=== PATIENT | female | born 1955 | race Caucasian/White ===

== ENCOUNTER → 2016-02-16 | Outpatient (CLI) | payer MEDICARE, MEDICAID | LOC: RAD 10:40 | PROVIDERS: ATTEND Anesthesiology Pain Medicine | DX: M51.36 Other intervertebral disc degeneration, lumbar region (principal) | CPT/HCPCS: 72110 ==

== ENCOUNTER → 2016-02-18 | Outpatient (CLI) | payer MEDICARE, MEDICAID ==
--- NOTE | 2016-02-18 17:34 | WOMENS IMAGING REPORT ---
EXAM DESCRIPTION: BILAT SCREENING MAMMO W/CAD COMPLETED DATE/TIME: 02/18/2016 9:04 am REASON FOR STUDY: Z12.31, ROUTINE SCREENING MAMMO Z12.31 ENCNTR SCREEN MAMMOGRAM FOR MALIGNANT NEOP LASM OF DEAN COMPARISON: 05/02/2012 TECHNIQUE: Standard craniocaudal and mediolateral oblique views of each breast recorded using Granicusa l acquisition. LIMITATIONS: None. FINDINGS: Findings present which are benign by mammographic criteria. No suspicious masses, calcifi cations or architectural distortion. Read with the assistance of CAD. .[facility] - R2 Cenova Version 1.3 .[facility] - R2 Cenova Version 1.3 .[facility] - R2 Cenova Version 2.4 .[facility] - R2 Cenova Version 2.4 .[facility] - R2 Import And Export Clerk Version 9.2 Benign mammographic findings may include one or more of the following: Smooth masses, popcorn/rim/co arse calcifications, asymmetries, post-procedure changes, and lesions with long-standing stability. BREAST DENSITY: b. There are scattered areas of fibroglandular density. BIRAD: 2 BENIGN FINDING(S) RECOMMENDATION: ROUTINE SCREENING COMMENT: PATIENT NOTIFIED BY LETTER. The [employer] recommends an annual screening mammogram for women aged 40 years or over. Each patient will receive a reminder prior to the anniversary date of her mammogram. The [employer] ([employer]) has developed recommendations for screening MRI of the breast s in certain patient populations, to be used in conjunction with mammography. Breast MRI surveillanc e may be appropriate for women with more than 20% lifetime risk of developing breast cancer as deter mined by genetic testing, significant family history of the disease, or history of mantle radiation f or Hodgkins Disease. [employer] Practice Guidelines 2008. TECHNICAL DOCUMENTATION: FINDING NUMBER: (1) ASSESSMENT: (1) JOB ID: [id number] [employer]- All Rights Reserved
== END ==
LOC: WI 09:38
PROVIDERS: ATTEND Student in an Organized Health Care Education/Training Program
DX: Z12.31 Encounter for screening mammogram for malignant neoplasm of breast (principal)
CPT/HCPCS: 77067; G0202

== ENCOUNTER → 2016-02-24 | Outpatient (CLI) | payer MEDICARE, MEDICAID ==
[2016-02-24 12:50] LABS: ABSOLUTE BASOPHILS # (AUTO) 0.1 10^3/uL (0.0-0.2); ABSOLUTE EOSINOPHILS # (AUTO) 0.2 10^3/uL (0.0-0.6); ABSOLUTE LYMPHOCYTES (AUTO) 2.1 10^3/uL (0.5-4.7); ABSOLUTE MONOCYTES (AUTO) 0.5 10^3/uL (0.1-1.4); EOSINOPHILS % (AUTO) 4.2 % (0-6); HEMATOCRIT 38.8 % (36.0-47.0); HEMOGLOBIN 12.8 g/dL (12.0-15.5); HGB HCT DIFFERENCE -0.4; LYMPHOCYTES % (AUTO) 35.2 % (13-45); MEAN CORPUSCULAR HEMOGLOBIN 30.7 pg (27.0-33.4); MEAN CORPUSCULAR VOLUME 93 fl (80-97); MONOCYTES % (AUTO) 9.1 % (3-13); RED BLOOD COUNT 4.17 10^6/uL (3.72-5.28); RED CELL DISTRIBUTION WIDTH 13.5 % (11.5-14.0); SEGMENTED NEUTROPHILS % (AUTO) 50.5 % (42-78); WHITE BLOOD COUNT 5.9 10^3/uL (4.0-10.5)
[2016-02-24 13:02] LABS: APPEARANCE,URINE SLIGHTLY-CLOUDY; BILIRUBIN,URINE NEGATIVE (NEGATIVE); GLUCOSE, URINE NEGATIVE (NEGATIVE); KETONES,URINE NEGATIVE (NEGATIVE); LEUKOCYTE ESTERASE,URINE MODERATE (NEGATIVE); NITRITE,URINE NEGATIVE (NEGATIVE); PROTEIN,URINE NEGATIVE (NEGATIVE); URINE SPECIFIC GRAVITY 1.015; UROBILINOGEN,URINE NEGATIVE mg/dL (<2.0)
[2016-02-24 13:15] LABS: ANION GAP 10 (5-19); BLOOD UREA NITROGEN 13 mg/dL (7-20); CALCIUM 9.6 mg/dL (8.4-10.2); CARBON DIOXIDE 28 mmol/L (22-30); CHLORIDE 105 mmol/L (98-107); CREATININE RESULT 1.03 mg/dL (0.52-1.25); GLUCOSE 82 mg/dL (75-110); POTASSIUM 3.8 mmol/L (3.6-5.0); SODIUM 143.4 mmol/L (137-145)
--- NOTE | 2016-02-24 18:36 | EKG REPORT ---
SEVERITY:- OTHERWISE NORMAL ECG - SINUS RHYTHM LOW VOLTAGE IN FRONTAL LEADS : Confirmed by: Thomas Marcum MD 24-Feb-2016 18:35:37
== END ==
LOC: OD 11:27
PROVIDERS: ATTEND Orthopaedic Surgery
DX: Z01.810 Encounter for preprocedural cardiovascular examination (principal); Z01.811 Encounter for preprocedural respiratory examination; Z01.818 Encounter for other preprocedural examination; Z79.899 Other long term (current) drug therapy; M17.11 Unilateral primary osteoarthritis, right knee
CPT/HCPCS: 36415; 71020; 80048; 81001; 85025; 93005; 93010

== ENCOUNTER → 2016-03-01 | Outpatient (CLI) | payer MEDICARE, MEDICAID | LOC: SP 11:12 | PROVIDERS: ATTEND Student in an Organized Health Care Education/Training Program | DX: R09.89 Other specified symptoms and signs involving the circulatory and respiratory systems (principal) | CPT/HCPCS: 93880 ==

== ENCOUNTER 2016-03-14 08:04 | Inpatient (IN) | payer MEDICARE, MEDICAID ==
[~2016-03-14 08:04] MED LIST: BUPIVACAINE INJ/PF LIPOSOME/PF 266 MG/20 ML SDV INFIL PRN; CEFAZOLIN INJ 1 GM VIAL ONE; IBUPROFEN 800 MG in NORMAL SALINE 250 ML IV PRN; LACTATED RINGERS 1000 ML IV PRN; LANSOPRAZOLE 15 MG TAB.RAP.DR PO PRN; LIDOCAINE 0.5% INJ-PF (5 MG/ML) 50 ML SDV SUBCUT PRN; OXYCODONE HCL SR 10 MG TABLET PO PRN; SCOPOLAMINE HYDROBROMIDE 1.5 MG PATCH.TD72 TD PRN; VANCOMYCIN HCL 1,000 MG in DEXTROSE 5%-WATER 250 ML IV PRN
[2016-03-14] MEDS ORDERED: THROMBIN (BOVINE) TOPICAL 20000 UNIT VIAL ONE (08:14)
[2016-03-14] MEDS ORDERED: THROMBIN (BOVINE) 5000 UNIT EPITAXIS KIT ONE (08:14)
[2016-03-14] MEDS ORDERED: BUPIVACAINE INJ/PF LIPOSOME/PF 266 MG/20 ML SDV ONE (08:15)
[2016-03-14] MEDS ORDERED: PROPOFOL INJ 200 MG/20 ML VIAL IV ONE (09:05)
[2016-03-14] MEDS ORDERED: FENTANYL CITRATE INJ/PF 100 MCG/2 ML AMPUL ONE ×2 (09:05)
[2016-03-14] MEDS ORDERED: MIDAZOLAM 2 MG/2 ML INJ ONE (09:05)
[2016-03-14] MEDS ORDERED: MORPHINE SULFATE 10 MG/ML INJ ONE (09:06)
[2016-03-14] MEDS ORDERED: TRANEXAMIC ACID INJ/PF 1,000 MG/10 ML SDV IV ONE (09:06)
[2016-03-14] MEDS ORDERED: DEXMEDETOMIDINE INJ 80 MCG/20 ML VIAL IV ONE (10:19)
[2016-03-14] MEDS ORDERED: MEPERIDINE HCL/PF INJ 25 MG/1 ML DISP.SYRIN IV PRN (10:25)
[2016-03-14] MEDS ORDERED: DIPHENHYDRAMINE HCL 50 MG/ML VIAL IV PRN ×2 (10:25→10:53)
[2016-03-14] MEDS ORDERED: OXYCODONE-ACETAMINOPHEN 5-325 MG TABLET PO PRN ×2 (10:25)
[2016-03-14] MEDS ORDERED: PROMETHAZINE HCL INJ 25 MG/1 ML VIAL IV PRN ×2 (10:25)
[2016-03-14] MEDS ORDERED: MORPHINE SULFATE 10 MG/ML INJ IV PRN ×3 (10:25→10:53)
[2016-03-14] MEDS ORDERED: FENTANYL CITRATE INJ/PF 100 MCG/2 ML AMPUL IV PRN ×3 (10:25)
[2016-03-14] MEDS ORDERED: FLUTICASONE/SALMETEROL DISKUS 250-50 MCG/DOSE IH PRN (10:52)
[2016-03-14] MEDS ORDERED: ACETAMINOPHEN 325 MG TABLET PO PRN (10:53)
[2016-03-14] MEDS ORDERED: ONDANSETRON HCL INJ/PF 4 MG/2 ML SDV IV PRN (10:53)
[2016-03-14] MEDS ORDERED: ONDANSETRON 4 MG TAB.RAPDIS PO PRN (10:53)
[2016-03-14] MEDS ORDERED: MAG HYDROX/AL HYDROX/SIMETH SUSP 30 ML UDCUP PO PRN (10:53)
[2016-03-14] MEDS ORDERED: MORPHINE SULFATE 10 MG/ML INJ IM PRN (10:53)
[2016-03-14] MEDS ORDERED: ZOLPIDEM TARTRATE 5 MG TABLET PO PRN (10:53)
--- NOTE | 2016-03-14 11:02 | Operative Report ---
Operative Report DATE OF SURGERY: 03/14/16 PREOPERATIVE DIAGNOSIS: Right knee arthritis OPERATION: Right knee arthroplasty SURGEON: SHA AGUIAR ANESTHESIA: Spinal TISSUE REMOVED OR ALTERED: Bone to pathology ESTIMATED BLOOD LOSS: 100 PROCEDURE: Implants used: Femur: Striker triathlon #3 CR femur Tibia: Were 3 tibia Tibial liner:, 9 mm CS insert Patella:, 9 mm oval patella Procedure with the patient supine on the operating table the. Right the limb is prepped and draped in a sterile fashion. The limb was elevated for exsanguination and the tourniquet inflated to 280 torr. A standard midline median parapatellar approach the knee is taken. Access is gained to the femoral canal through the intercondylar notch. Intramedullary alignment instrumentation used to resect 10 mm of distal femur in 5 of valgus. Sizing guide indicated a size 3 femur. Appropriate cutting jig is then used to fashion anterior posterior and chamfer cuts. A trial reduction femurs performed and this is judged to be adequate. Attention was next turned to the tibia. Using an extra medullary alignment system 9 millimeters was resected off the lateral tibial plateau. This is sized to a size 3 tibia. A trial reduction was now performed with a 3 femur and a 3 tibia using a 9 millimeters spacer. It is full extension and central patellofemoral tracking. The articular surface the patella was next resected using an oscillating saw. All trial implants were removed. Polymethylmethacrylate is mixed and used to cement the above implants in place. On adequate curing the cement excess cement was removed the tourniquet was deflated hemostasis obtained the wound is then closed in layers using interrupted Vicryl followed by heidi. A sterile compressive dressing was applied and the patient returned to recovery room in satisfactory condition.
[2016-03-14] MEDS: FENTANYL CITRATE INJ/PF 100 MCG/2 ML AMPUL ONE ×3 (11:45→11:58)
[2016-03-14] MEDS ORDERED: HYDROCHLOROTHIAZIDE 12.5 MG CAPSULE PO ONE (12:30)
[2016-03-14] MEDS ORDERED: LEVOTHYROXINE SODIUM 0.05 MG TABLET PO ONE (12:30)
[2016-03-14] MEDS ORDERED: GABAPENTIN 100 MG CAPSULE PO ONE (13:00)
[2016-03-14] MEDS: MORPHINE SULFATE 10 MG/ML INJ IV PRN ×2 (13:37→18:04)
[2016-03-14] MEDS ORDERED: LIDOCAINE 2% INJ-PF (20 MG/ML) 10 ML AMPUL ONE (14:39)
[2016-03-14] MEDS ORDERED: SUCCINYLCHOLINE CHLORIDE INJ 200 MG/10 ML VIAL ONE (14:39)
[2016-03-14] MEDS ORDERED: GLYCOPYRROLATE INJ 0.4 MG/2 ML VIAL ONE (14:39)
[2016-03-14] MEDS ORDERED: ONDANSETRON HCL INJ/PF 4 MG/2 ML SDV ONE (14:39)
[2016-03-14] MEDS ORDERED: DEXAMETHASONE SOD PHOSPHATE INJ 4 MG/1 ML VIAL ONE (14:39)
[2016-03-14] MEDS ORDERED: ROCURONIUM BROMIDE INJ 50 MG/5 ML VIAL IV ONE (14:39)
[2016-03-14] MEDS: EZETIMIBE 10 MG TABLET PO SCH (18:05)
[2016-03-14] MEDS: SENNOSIDES/DOCUSATE 8.6-50 MG 1 EACH TABLET PO SCH (18:05)
[2016-03-14] MEDS: IBUPROFEN 800 MG in NORMAL SALINE 250 ML IV SCH (18:07)
[2016-03-14] MEDS: RINGERS SOLUTION,LACTATED 1,000 ML IV PRN (19:39)
[2016-03-14] MEDS: RIVAROXABAN 10 MG TABLET PO SCH (21:18)
[2016-03-14] MEDS: OXYCODONE HCL SR 10 MG TABLET PO SCH (21:19)
[2016-03-14] MEDS ORDERED: ROSUVASTATIN CALCIUM 40 MG PO SCH (22:00)
[2016-03-14] MEDS ORDERED: VANCOMYCIN HCL 1,000 MG in DEXTROSE 5%-WATER 250 ML IV ONE (22:50)
[2016-03-15] MEDS: IBUPROFEN 800 MG in NORMAL SALINE 250 ML IV SCH ×3 (02:09→17:36)
[2016-03-15] MEDS: RINGERS SOLUTION,LACTATED 1,000 ML IV PRN (03:50)
[2016-03-15] MEDS: LANSOPRAZOLE 30 MG TAB.RAP.DR PO SCH (06:06)
[2016-03-15 06:34] LABS: HEMATOCRIT 31.5 % (36.0-47.0); HEMOGLOBIN 10.6 g/dL (12.0-15.5); HGB HCT DIFFERENCE 0.3; MEAN CORPUSCULAR HGB CONC 33.6 g/dL (32.0-36.0); MEAN CORPUSCULAR VOLUME 92 fl (80-97); RED BLOOD COUNT 3.41 10^6/uL (3.72-5.28); RED CELL DISTRIBUTION WIDTH 13.1 % (11.5-14.0); WHITE BLOOD COUNT 13.8 10^3/uL (4.0-10.5)
[2016-03-15 06:53] LABS: ANION GAP 9 (5-19); BLOOD UREA NITROGEN 12 mg/dL (7-20); CALCIUM 9.3 mg/dL (8.4-10.2); CARBON DIOXIDE 26 mmol/L (22-30); CHLORIDE 105 mmol/L (98-107); CREATININE RESULT 0.89 mg/dL (0.52-1.25); GLUCOSE 98 mg/dL (75-110); POTASSIUM 3.7 mmol/L (3.6-5.0); SODIUM 139.7 mmol/L (137-145)
--- NOTE | 2016-03-15 06:55 | PDOC PROGRESS REPORT ---
Subjective Progress Note for:: 03/15/16 Subjective:: Patient with complaints of pain and inability to increase the volume on her TV Physical Exam Vital Signs: Temp Pulse Resp BP Pulse Ox 36.6 C 72 18 100/47 L 100 03/14/16 20:26 03/14/16 20:26 03/14/16 20:26 03/14/16 20:26 03/15/16 02:06 Intake & Output 03/13/16 03/14/16 03/15/16 06:59 06:59 06:59 Intake Total 6921 Output Total 5225 Balance 1696 General appearance: PRESENT: mild distress Head exam: PRESENT: normocephalic Eye exam: PRESENT: EOMI Respiratory exam: PRESENT: unlabored Cardiovascular exam: PRESENT: RRR Pulses: PRESENT: +1 pedal pulses bilateral Vascular exam: PRESENT: normal capillary refill GI/Abdominal exam: PRESENT: soft Extremities exam: PRESENT: other - Right lower extremity dressing clean dry and intact. Neurovascular examinations intact. Results Laboratory Results: 03/15/16 06:14 03/14/16 03/15/16 08:35 06:14 WBC 13.8 H RBC 3.41 L Hgb 10.6 L Hct 31.5 L MCV 92 MCH 31.0 MCHC 33.6 RDW 13.1 Plt Count 190 Potassium 3.7 Impressions: Knee X-Ray 03/14/16 10:55 IMPRESSION: SATISFACTORY POSTOPERATIVE RIGHT KNEE. Status: Imported from PACS Assessment & Plan - Diagnosis (1) Arthritis of right knee Is this a current diagnosis for this admission?: YesPlan: 60-year-old white female seen postop day 1 from right total knee arthroplasty. Uneventful postoperative course. Mobilization with physical therapy and weightbearing as tolerated basis. - Time Time Spent with patient: 15-24 minutes Critical Time spent with patient: 15-24 minutes Anticipated discharge: Home with Homehealth Within: within 24 hours
[2016-03-15] MEDS: OXYCODONE HCL SR 10 MG TABLET PO SCH ×2 (10:35→22:13)
[2016-03-15] MEDS: LEVOTHYROXINE SODIUM 0.05 MG TABLET PO SCH (10:36)
[2016-03-15] MEDS: PRENATAL VITAMIN W-O CA NO5/FE FUMARATE/FA CAPSULE PO SCH (10:36)
[2016-03-15] MEDS: SENNOSIDES/DOCUSATE 8.6-50 MG 1 EACH TABLET PO SCH ×2 (10:36→17:35)
[2016-03-15] MEDS: GABAPENTIN 100 MG CAPSULE PO SCH (10:36)
[2016-03-15] MEDS: HYDROCHLOROTHIAZIDE 12.5 MG CAPSULE PO SCH (10:37)
[2016-03-15] MEDS ORDERED: TRANEXAMIC ACID INJ/PF 1,000 MG/10 ML SDV IV ONE (13:00)
[2016-03-15] MEDS: EZETIMIBE 10 MG TABLET PO SCH (17:35)
[2016-03-15] MEDS: OXYCODONE HCL IR 5 MG TABLET PO PRN (19:19)
[2016-03-15] MEDS: RIVAROXABAN 10 MG TABLET PO SCH (22:13)
[2016-03-15] MEDS: FLUTICASONE/SALMETEROL DISKUS 250-50 MCG/DOSE IH SCH (22:13)
[2016-03-16] MEDS: MORPHINE SULFATE 10 MG/ML INJ IV PRN (00:30)
[2016-03-16] MEDS: IBUPROFEN 800 MG in NORMAL SALINE 250 ML IV SCH ×2 (01:22→09:30)
[2016-03-16] MEDS: OXYCODONE HCL IR 5 MG TABLET PO PRN (03:36)
[2016-03-16] MEDS: LANSOPRAZOLE 30 MG TAB.RAP.DR PO SCH (05:17)
--- NOTE | 2016-03-16 07:29 | PDOC DISCHARGE SUMMARY ---
General - Admit/Disc Date/PCP Admission Date/Primary Care Provider: 03/14/16 08:04 RICH LAWRENCE, Discharge Date: 03/16/16 - Discharge Diagnosis (1) Arthritis of right knee Is this a current diagnosis for this admission?: Yes - Additional Information Resuscitation Status: Full Code Discharge Diet: As Tolerated, Regular Discharge Activity: Balance Activity w/Rest Home Medications: Aspirin [Aspirin 81 mg Chewable Tablet] 81 mg PO QAM 05/23/12 Rosuvastatin Calcium [Crestor 20 mg Tablet] 40 mg PO QAM 05/23/12 Albuterol Sulfate [Ventolin HFA MDI 18 GM] 1 - 2 puff IH Q4H PRN 03/07/16 Ezetimibe [Zetia 10 mg Tablet] 10 mg PO QAM 03/07/16 Fluticasone/Salmeterol [Advair 250-50 Diskus 28 dose] 1 inh IH ASDIR PRN Gabapentin 100 mg PO QAM 03/07/16 Hydrochlorothiazide 12.5 mg PO QAM 03/07/16 Levothyroxine Sodium [Synthroid] 50 mcg PO QAM 03/07/16 Oxycodone HCl [Oxy-Ir 5 mg Tablet] 5 mg PO Q6HP PRN #0 tablet 03/16/16 Rivaroxaban [Xarelto 10 mg Tablet] 10 mg PO QHS #0 tablet 03/16/16 History of Present Illness History of Present Illness: LEILANI ALMANZA is a 60 year old female who presents with progressive right knee pain and functional disability secondary osteoarthritis. She is admitted for elective right knee arthroplasty. Hospital Course Hospital Course: Patient submitted to the operating room where she undergoes uncomplicated right knee arthroplasty. She was returned to floor in satisfactory condition. She's seen by physical therapy for weightbearing as tolerated ambulation and range of motion. She makes excellent progress in this regard. Dressing is changed on postop day #2. Wound is clean dry and intact. Physical Exam Vital Signs: Temp Pulse Resp BP Pulse Ox 36.8 C 97 16 101/48 L 98 03/16/16 00:04 03/16/16 00:04 03/16/16 00:04 03/16/16 00:04 03/16/16 00:04 Intake & Output 03/15/16 03/16/16 03/17/16 06:59 06:59 06:59 Intake Total 6921 1450 Output Total 5225 Balance 1696 1450 General appearance: PRESENT: mild distress Head exam: PRESENT: normocephalic Eye exam: PRESENT: EOMI Respiratory exam: PRESENT: unlabored Cardiovascular exam: PRESENT: RRR Pulses: PRESENT: +1 pedal pulses bilateral Vascular exam: PRESENT: normal capillary refill GI/Abdominal exam: PRESENT: soft Rectal exam: PRESENT: deferred Extremities exam: PRESENT: other - Dressing is changed on postop day number #2. The wound is well approximated. There is no erythema or drainage. Distal neurovascular examinations intact. Neurological exam: PRESENT: alert, awake, oriented to person, oriented to place , oriented to time, oriented to situation. ABSENT: motor sensory deficit Psychiatric exam: PRESENT: appropriate affect, normal mood. ABSENT: homicidal ideation, suicidal ideation Results Laboratory Results: 03/15/16 06:14 03/15/16 06:14 Impressions: Knee X-Ray 03/14/16 10:55 IMPRESSION: SATISFACTORY POSTOPERATIVE RIGHT KNEE. Status: Imported from PACS Qualifiers PATEINT BEING DISCHARGED WITH ANY OF THE FOLLOWING DIAGNOSIS?: No VTE patient discharged on overlapping Therapy?: Yes Plan Discharge Plan: Patient to be discharged home with home health nursing, home health physical therapy, we will Walker, mario roman. Follow-up with Dr. Hallman in the [facility] for surgery in approximately 2 weeks for staple removal. Time Spent: Less than 30 Minutes
[2016-03-16 07:41] LABS: HEMOGLOBIN 10.4 g/dL (12.0-15.5); HGB HCT DIFFERENCE 1.2; MEAN CORPUSCULAR HGB CONC 34.6 g/dL (32.0-36.0); MEAN CORPUSCULAR VOLUME 93 fl (80-97); RED BLOOD COUNT 3.25 10^6/uL (3.72-5.28); RED CELL DISTRIBUTION WIDTH 13.3 % (11.5-14.0); WHITE BLOOD COUNT 10.5 10^3/uL (4.0-10.5)
[2016-03-16] MEDS: HYDROCHLOROTHIAZIDE 12.5 MG CAPSULE PO SCH (09:28)
[2016-03-16] MEDS: OXYCODONE HCL SR 10 MG TABLET PO SCH (09:28)
[2016-03-16] MEDS: FLUTICASONE/SALMETEROL DISKUS 250-50 MCG/DOSE IH SCH (09:29)
[2016-03-16] MEDS: LEVOTHYROXINE SODIUM 0.05 MG TABLET PO SCH (09:29)
[2016-03-16] MEDS: GABAPENTIN 100 MG CAPSULE PO SCH (09:29)
[2016-03-16] MEDS: PRENATAL VITAMIN W-O CA NO5/FE FUMARATE/FA CAPSULE PO SCH (09:29)
[2016-03-16] MEDS: SENNOSIDES/DOCUSATE 8.6-50 MG 1 EACH TABLET PO SCH (09:29)
[2016-03-16 11:11] VITALS: BP 97/39
== END 2016-03-16 12:30 | disposition home or self-care (01) | DRG 470 ==
LOC: INOR 08:04 → 4S 12:44
PROVIDERS: ADMIT Orthopaedic Surgery; ATTEND Orthopaedic Surgery
PROC: 0SRC0J9 Replacement of Right Knee Joint with Synthetic Substitute, Cemented, Open Approach (ICD-10-PCS; principal; 2016-03-14 10:00)
DX: M17.11 Unilateral primary osteoarthritis, right knee (principal); I10 Essential (primary) hypertension; E78.00 Pure hypercholesterolemia, unspecified; E66.9 Obesity, unspecified; Z98.84 Bariatric surgery status; Z88.8 Allergy status to other drugs, medicaments and biological substances; Z82.49 Family history of ischemic heart disease and other diseases of the circulatory system; Z79.899 Other long term (current) drug therapy; Z79.82 Long term (current) use of aspirin; Z68.28 Body mass index [BMI] 28.0-28.9, adult
CPT/HCPCS: 01402; 36415; 80048; 84132; 85027; 88305; 88311; 94799; C9290; G8978-GP; G8979-GP; G8987-GO; G8988-GO; J0330; J0690; J1100; J1741; J2250; J2270; J2405; J2704; J3010; J3370; J3490; J7050; J7060; J7120